=== PATIENT | male | born 1955 | race Caucasian/White ===

== ENCOUNTER 2016-09-24 13:19 | Inpatient (IN) | payer SELFPAY ==
[~2016-09-24] VITALS: Ht 165.1 cm; Wt 77.1 kg
[2016-09-24] VITALS (9 sets, daily range): BP systolic 101–122
[2016-09-24] MEDS ORDERED: NACL 0.9% 1,000 ML IV ONE ×2 (13:30→15:45)
[2016-09-24 13:48] LABS: BASOPHILS # (AUTO) 0.1 K/uL (0.0-0.2); BASOPHILS % (AUTO) 0.8 % (0.0-2.0); EOSINOPHILS % (AUTO) 0.2 % (0.0-4.0); HEMATOCRIT 42.1 % (36-54); HEMOGLOBIN 14.3 g/dL (14.0-18.0); LYMPHOCYTES # (AUTO) 2.2 K/uL (1.0-5.5); MEAN CORPUSCULAR HEMOGLOBIN 32 pg (27-31); MEAN CORPUSCULAR HGB CONC 34 % (32-36); MEAN CORPUSCULAR VOLUME 93 fL (79.0-98.0); MONOCYTES # (AUTO) 0.2 K/uL (0.0-1.0); MONOCYTES % (AUTO) 2.1 % (1.7-9.3); NEUTROPHILS # (AUTO) 6.9 K/uL (1.8-7.7); NEUTROPHILS % (AUTO) 73.9 % (40.0-70.0); PLATELET COUNT (AUTO) 168 K/uL (130-430); RED BLOOD CELL COUNT(AUTO) 4.51 MIL/uL (4.2-6.2); RED CELL DISTRIBUTION WIDTH 12.7 % (9.0-15.0); WHITE BLOOD COUNT (AUTO) 9.4 K/uL (4.8-10.8)
[2016-09-24 13:50] LABS: ANION GAP 9 (5-15); CALCIUM 7.7 mg/dL (8.4-11.0); CHLORIDE 107 mmol/L (98-107); CREATININE 1.68 mg/dL (0.55-1.30); GLUCOSE 172 mg/dL (70-99); POTASSIUM 3.9 mmol/L (3.5-5.1); SODIUM SERUM 139 mmol/L (136-145); UREA NITROGEN, BLOOD 33 mg/dL (8-21)
[2016-09-24 13:51] LABS: GFR AFRICAN AMERICAN 54 mL/min (>90)
[2016-09-24 13:55] LABS: ALANINE AMINOTRANSFERASE 25 U/L (12-78); ALBUMIN 3.7 g/dL (3.4-4.8); ASPARTATE AMINOTRANSFERASE 43 U/L (10-37); CREATINE KINASE, TOTAL 663 U/L (39-308); TOTAL BILIRUBIN 0.6 mg/dL (0.0-1.0); TOTAL PROTEIN, SERUM 7.1 g/dL (6.4-8.3)
[2016-09-24 14:03] LABS: INR 0.9 (0.80-1.20); PROTHROMBIN TIME 10.1 SECS (9.5-12.5)
[2016-09-24 14:09] LABS: ALCOHOL, BLOOD 395 mg/dL (<10)
[2016-09-24 14:17] LABS: ACETAMINOPHEN < 1 ug/mL (1-30)
[2016-09-24 14:20] LABS: BILIRUBIN,URINE NEGATIVE (NEGATIVE); BLOOD, URINE NEGATIVE (NEGATIVE); CLARITY/URINE CLEAR (CLEAR); COLOR,URINE YELLOW (YELLOW); GLUCOSE,URINE NEGATIVE (NEGATIVE); KETONES,URINE NEGATIVE (NEGATIVE); LEUKOCYTE ESTERASE ,URINE NEGATIVE (NEGATIVE); NITRITE, URINE NEGATIVE (NEGATIVE); PH,URINE 5.5 (5.0-8.0); PROTEIN URINE NEGATIVE (NEGATIVE); UROBILINOGEN,URINE 0.2 (0.2-1.0)
[2016-09-24 14:22] LABS: CKMB RELATIVE INDEX 0.5 (0.0-2.9); CREATINE KINASE MB 3.1 ng/mL (0-3.6)
[2016-09-24 14:53] LABS: BARBITURATE, URINE NEGATIVE (NEG <=200); BENZODIAZEPINE, URINE NEGATIVE (NEG <=150); CANNABINOID, URINE NEGATIVE (NEG <=50); COCAINE, URINE NEGATIVE (NEG <=150); METHAMPHETAMINES SCREEN,URINE NEGATIVE (NEG <=500); OPIATE, URINE NEGATIVE (NEG <=100); PHENCYCLIDINE SCREEN,URINE NEGATIVE (NEG <=25); UR TRICYCLIC ANTIDEPRESSANTS NEGATIVE (NEG <=300); URINE AMPHETAMINE NEGATIVE (NEG <=500); URINE METHADONE NEGATIVE (NEG <=200); URINE OXYCODONE SCREEN NEGATIVE (NEG <=100); URINE PROPOXYPHENE SCREEN NEGATIVE (NEG <=300)
[2016-09-24] MEDS ORDERED: FOLIC ACID 1 MG, THIAMINE HCL 100 MG, MAGNESIUM SULFATE 1 GM, MVI 10 ML in NACL 0.9% 1,... IV ONE (15:00)
[2016-09-24] MEDS ORDERED: ONDANSETRON HCL 4 MG/2 ML VIAL IVP PRN (15:30)
[2016-09-24] MEDS ORDERED: cloNIDine HCL 0.1 MG TABLET PO PRN (15:30)
[2016-09-24] MEDS ORDERED: LORazepam 2 MG/ML VIAL (FOR ER USE) IVP PRN (15:30)
[2016-09-24] MEDS ORDERED: ACETAMINOPHEN 325 MG TABLET PO PRN (15:30)
[2016-09-24 17:17] LABS: SALICYLATE < 1 mg/dL (3-30)
[2016-09-24] MEDS: NACL 0.9% 1,000 ML IV SCH (18:11)
[2016-09-24] MEDS: LORazepam 2 MG/ML VIAL IVP PRN (21:11)
[2016-09-24] MEDS ORDERED: HALOPERIDOL LACTATE 5 MG/ML VIAL IM ONE (22:45)
[2016-09-24] MEDS ORDERED: DIPHENHYDRAMINE INJ 50 MG/ML VIAL IM ONE (22:45)
[2016-09-24] MEDS ORDERED: LORazepam 2 MG/ML VIAL IM ONE (22:45)
[2016-09-25] VITALS (16 sets, daily range): BP systolic 123–162
[2016-09-25] MEDS: NACL 0.9% 1,000 ML IV SCH ×3 (02:03→21:27)
[2016-09-25] MEDS: LORazepam 2 MG/ML VIAL IVP PRN (05:18)
[2016-09-25] MEDS ORDERED: LORazepam 2 MG/ML VIAL IVP PRN (05:45)
[2016-09-25] MEDS ORDERED: DIPHENHYDRAMINE INJ 50 MG/ML VIAL IM ONE (07:00)
[2016-09-25] MEDS ORDERED: LORazepam 2 MG/ML VIAL IM ONE (07:00)
[2016-09-25] MEDS ORDERED: HALOPERIDOL LACTATE 5 MG/ML VIAL IM ONE (07:00)
[2016-09-25] MEDS: FOLIC ACID 1 MG TABLET PO SCH (09:26)
[2016-09-25] MEDS: CYANOCOBALAMIN 1000 mCg TABLET PO SCH (09:26)
[2016-09-25] MEDS ORDERED: THIAMINE HCL 100 MG TABLET PO ONE (11:00)
[2016-09-25] MEDS: QUEtiapine FUMARATE 25 MG TABLET PO SCH ×2 (16:11→20:52)
[2016-09-26 00:16] VITALS: BP_SYST 146
[2016-09-26 05:18] VITALS: BP_SYST 144
[2016-09-26 06:52] LABS: CREATININE 0.97 mg/dL (0.55-1.30); POTASSIUM 3.9 mmol/L (3.5-5.1)
[2016-09-26 08:12] VITALS: BP_SYST 155
[2016-09-26] MEDS: QUEtiapine FUMARATE 25 MG TABLET PO SCH ×2 (08:42→15:10)
[2016-09-26] MEDS: CYANOCOBALAMIN 1000 mCg TABLET PO SCH (08:42)
[2016-09-26] MEDS: FOLIC ACID 1 MG TABLET PO SCH (08:42)
[2016-09-26] MEDS ORDERED: THIAMINE HCL 100 MG TABLET PO SCH (09:00)
[2016-09-26 12:09] VITALS: BP_SYST 159
[2016-09-26 16:15] VITALS: BP_SYST 179
[2016-09-26 17:55] VITALS: BP_SYST 155
== END 2016-09-26 18:45 | disposition home or self-care (01) | DRG 897 ==
LOC: SED 13:19 → STU 15:27 → SIC 15:41 → STU 09-25 12:45 → SMU 09-26 12:37
PROVIDERS: ADMIT Family Medicine; ATTEND Family Medicine
DX: F10.129 Alcohol abuse with intoxication, unspecified (principal); E11.9 Type 2 diabetes mellitus without complications; Y90.1 Blood alcohol level of 20-39 mg/100 ml; R79.89 Other specified abnormal findings of blood chemistry; Z91.013 Allergy to seafood
CPT/HCPCS: 36415; 70460-TC; 71010; 80048; 80053; 80307; 81003; 82140-TC; 82550-TC; 82553-TC; 83735-TC; 84484; 85025; 85610-TC; 85730-TC; 87081; 93005; 93306; 96361; 96365; 97116-GP; 99285; G0480; G0481; G0482; J1200; J1630; J2060; J3411; J3475; J3490; J7030